=== PATIENT | female | born 1975 ===

== ENCOUNTER 2025-08-14 16:22 | Outpatient (REF) | payer BC, SELFPAY ==
--- NOTE | 2025-08-11 10:30 | SKI_PTH ---
PATIENT: Tram Mendieta LOC: [facility] U#:[id number] AGE/SX: 49/F ROOM: RE08/14/[address]: Shaye Coyd V : 1975 BED: DIS: 08/14/2025 SPEC #: [id number] RECD: 08/14/25 16:30 STATUS: MALINDA REElizabeth #: [id number] DULCE: 08/11/25 10:[address]: Shaye Cody V DEPT: Surgical Specimen RECD BY: Conchis Avery ENTERED: 08/14/25 16:30 SP TYPE: JOSE CRUZ SCHMIDT DR: Kathia Mcintosh Tissues: 1 - SKIN BIOPSY(SHAVE/PUNCH) Procedures: SKIN LEVEL 4 Comments: [id number]
== END 2025-08-14 16:23 | disposition home or self-care (01) ==
LOC: NCHCN 16:22
PROVIDERS: PCP Nurse Practitioner Family; Visit Provider Family Medicine
DX: D23.5 Other benign neoplasm of skin of trunk (principal)
CPT/HCPCS: 88305

== ENCOUNTER 2025-09-21 14:45 | Outpatient (CLI) | payer BC, SELFPAY ==
--- NOTE | 2025-09-21 09:00 | DI.RAD_ITS ---
Exam(s) XR HIP PELVIS ADULT BL EXAM: XR HIP PELVIS ADULT BL CLINICAL HISTORY: B/L hip pain. TECHNIQUE: 2D digital imaging was performed of the pelvis and bilateral hips. Three images were obtained. AP pelvis and lateral views of both hips were obtained. COMPARISON: No exams were available for comparison FINDINGS: BONES: No acute fracture is present. No bony destructive lesion is seen. JOINTS: No dislocation present. There is mild acetabular spurring bilaterally. The joint spaces of the hips are otherwise well maintained. The visualized sacroiliac joints and symphysis pubis are unremarkable. SOFT TISSUE: Normal. IMPRESSION: Mild degenerative changes of the hips. DATA REPOSITORY: RADIATION DOSE DELIVERED:
== END 2025-09-21 14:46 | disposition home or self-care (01) ==
LOC: DIORS 14:45
PROVIDERS: PCP Nurse Practitioner Family; Visit Provider Physician Assistant
DX: M25.551 Pain in right hip (principal); M25.552 Pain in left hip; M16.11 Unilateral primary osteoarthritis, right hip; M16.12 Unilateral primary osteoarthritis, left hip
CPT/HCPCS: 73521